=== PATIENT | female | born 1965 | race Caucasian/White ===

== ENCOUNTER 2020-11-11 07:25 | Emergency (ER) | payer OTHER ==
[~2020-11-11 07:25] MED LIST: SKELAXIN800 MG PO; SYNTHROID200 MCG PO; VOLTAREN **OUT75 MG PO
[2020-11-11 08:17] LABS: BASOPHIL 0.8 % (0-2); EOSINOPHIL 2.2 % (0-5); HCT 42.6 % (37.0-47.0); HGB 13.9 g/dl (12.5-16.0); LYMPHOCYTE 29.8 % (15-48); MCH 28.5 pg (25.0-31.0); MCHC 32.6 g/dL (32.0-36.0); MCV 87.5 fL (78.0-100.0); MONOCYTE 9.1 % (0-12); MPV 10.3 fL (6.0-9.5); NEUTROPHIL 57.8 % (41-80); NRBC 0; PLT 372 K/uL (150-400); RBC 4.87 M/uL (4.20-5.40); RDW 13.2 % (11.5-14.0); WBC 7.3 K/uL (4.0-10.5)
[2020-11-11 08:32] LABS: BUN/CREAT RATIO (CALC) 29.3 RATIO; CREATININE 0.58 mg/dL (0.51-0.95)
[2020-11-11] MEDS ORDERED: ANTIVERT25 MG PO (10:50)
[2020-11-11] MEDS ORDERED: ONDANSETRON ODT4 MG SL (10:50)
== END 2020-11-11 11:10 | disposition home or self-care (01) ==
LOC: FER 07:25
PROVIDERS: Emergency Medicine Emergency Medical Services
DX: R42 Dizziness and giddiness (principal); R51.9 Headache, unspecified; R11.2 Nausea with vomiting, unspecified; Z88.5 Allergy status to narcotic agent; Z98.890 Other specified postprocedural states; Z86.79 Personal history of other diseases of the circulatory system
CPT/HCPCS: 36415; 70450; 80048; 85025; 93005; J0780; J1100; J1885; J2405; J3360; J7030